=== PATIENT | male | born 1985 ===

== ENCOUNTER 2018-06-24 00:30 | Emergency (ER) | payer OTHER ==
[2018-06-24] MEDS ORDERED: ACETAMINOPHEN 325 MG TABLET PO ONE (00:48)
--- NOTE | 2018-06-24 01:58 | RADIOLOGY REPORT (SQ) ---
CLINICAL DATA: 32-year-old male who fell and landed on arm. TECHNICAL DATA: Two x-ray views of the right forearm were performed on 06/24/2018 at 4:24 AM. COMPARISONS: None FINDINGS: There is no evidence of fracture or dislocation. There is no significant arthritis or degenerative change. No focal lytic or sclerotic bone lesions are seen. Bone mineralization is normal No focal soft tissue abnormalities are identified. IMPRESSION: No evidence of acute osseous injury involving the right forearm.
--- NOTE | 2018-06-24 02:29 | ER Document Report ---
HPI - HPI Patient complains to provider of: right arm pain Time Seen by Provider: 06/24/18 01:32 Pain Level: 5 Context: Pt. is a 32 year old male presenting to the ED after falling out of the lower bunk bed onto his right arm. Stated that he did not hit his head, nor did he pass out or have any vomiting. Stated he landed directly on the right arm. Pt. stated a few years ago he has extensive surgery in his right hand and wrist from torn ligaments and tendons after something fell onto his right hand. Stated that the doctor at that time told him he "would never be able to make a fist with the right hand again." Pt. stated that he generally has weakness in the right hand from previous injury. Pt. stated that he did go through extensive PT to help get more dexterity of the right hand. Patient states injury occurred after dinner this evening. Patient denies pain in his right elbow, states pain is his entire right forearm. Past medical history: Diabetes, hypertension Medications: Trileptal, metformin, regular insulin Allergies: None - CONSTITUTIONAL Constitutional: DENIES: Fever, Chills - MUSCULOSKELETAL Musculoskeletal: REPORTS: Extremity pain - R arm Past Medical History - General Information source: Patient - Social History Smoking Status: Former Smoker Chew tobacco use (# tins/day): No Frequency of alcohol use: None Drug Abuse: None Lives with: Family Family History: Reviewed & Not Pertinent Patient has suicidal ideation: No Patient has homicidal ideation: No - Past Medical History Cardiac Medical History: Reports: Hx Hypertension Endocrine Medical History: Reports: Hx Diabetes Mellitus Type 2 Renal/ Medical History: Denies: Hx Peritoneal Dialysis Past Surgical History: Reports: Hx Orthopedic Surgery - tendons in R wrist and hand. Vertical Provider Document - CONSTITUTIONAL Agree With Documented VS: Yes Notes: GENERAL: Alert, interacts well. No acute distress. HEAD: Normocephalic, atraumatic. EYES: Pupils equal, round, and reactive to light. Extraocular movements intact. ENT: Oral mucosa moist, tongue midline. NECK: Full range of motion. Supple. Trachea midline. LUNGS: Clear to auscultation bilaterally, no wheezes, rales, or rhonchi. No respiratory distress. HEART: Regular rate and rhythm. No murmur ABDOMEN: Soft, non-tender. Non-distended. Bowel sounds present in all 4 quadrants. EXTREMITIES: Moves all 4 extremities spontaneously. No edema, normal radial and dorsalis pedis pulses bilaterally. No cyanosis. Generalized weakness noted in the right grasp of hands. Patient states that his his baseline. Patient able to flex and extend his right elbow and right wrist without difficulty. Patient able to supinate and pronate right forearm as well without pain. No obvious swelling, skin abnormalities noted to right forearm. BACK: no cervical, thoracic, lumbar midline tenderness. No saddle anesthesia, normal distal neurovascular exam. NEUROLOGICAL: Alert and oriented x3. Normal speech. cranial nerves II through XII grossly intact. PSYCH: Normal affect, normal mood. SKIN: Warm, dry, normal turgor. No rashes or lesions noted. Course - Re-evaluation Re-evalutation: 06/24/18 02:29 Discussed x-ray results with patient at bedside. X-ray negative at this time. Discussed need to continue follow-up with orthopedics should he continue with pain and potentially get into a continued PT facility through the long term for his right hand weakness. - Vital Signs Vital signs: Temp Pulse Resp BP Pulse Ox 98.1 F 73 18 122/74 96 06/24/18 00:40 06/24/18 00:40 06/24/18 00:40 06/24/18 00:40 06/24/18 00:40 Discharge - Discharge Clinical Impression: Right arm pain Condition: Stable Disposition: HOME, SELF-CARE Instructions: Arm Pain, Nonspecific ([facility]) Additional Instructions: He has been seen and treated in the emergency department for right arm pain after injury. Your x-rays are negative at this time. You should follow-up with your primary care provider or orthopedic at the present for continued care. Please return to the emergency room for any other concerning symptoms.
[2018-06-24 02:56] VITALS: BP 130/84
== END 2018-06-24 02:35 | disposition home or self-care (01) ==
LOC: ER 00:30
DX: M79.631 Pain in right forearm (principal); W06.XXXA Fall from bed, initial encounter; Y92.149 Unspecified place in prison as the place of occurrence of the external cause; R53.1 Weakness; I10 Essential (primary) hypertension; E11.9 Type 2 diabetes mellitus without complications; Z79.4 Long term (current) use of insulin; Z79.84 Long term (current) use of oral hypoglycemic drugs; Z79.899 Other long term (current) drug therapy; Z87.891 Personal history of nicotine dependence; Z98.890 Other specified postprocedural states
CPT/HCPCS: 99284